=== PATIENT | male | born 1950 | race Caucasian/White ===

== ENCOUNTER → 2017-04-06 | Outpatient (CLI) | payer OTHER, MEDICARE ==
[~2017-04-06] VITALS: Ht 175.3 cm; Wt 89.2 kg
[~2017-04-06] MED LIST: ATACAND HCT 161 EACH PO; ATACAND HCT 321 EACH PO; AXERT12.5 MG PO; BACTRIM DS TAB1 EACH PO; BUTRANS1 EAC1 TD; CARDURA4 MG PO; CELEBREX 200 M200 MG PO; CELEXA20 MG PO; CIPROFLOXACIN500 M3 PO; DYAZIDE 37.5-21 EACH PO; FINASTERIDE5 MG PO; GABAPENTIN100 MG PO; HYDROCODON-ACE1 EAC4 PO; HYDROCODON-ACE1 EAC5 PO; HYOSCYAMINE0.375 M2 PO; LANSOPRAZOLE30 MG PO; LIDODERM 5%1 PATC1 TRANSDERM; LIDODERM 5%1 PATCH TD; LIDODERM 5%1 PATCH TOP; LIDODERM TP; NASONEX17 GM; NEURONTIN 300300 M1 PO; NEURONTIN 300M300 M2 PO; NEURONTIN300 MG PO; NEXIUM20 MG PO; NORCO 10-325 T1 EACH PO; SEROQUEL; SEROQUEL 12.512.5 MG PO; VALIUM5 MG PO; VOLTAREN GEL 1100 G1 TOP; VOLTAREN100 GM TP; XANAX 0.25 MG0.25 MG PO; prilosec PO
--- NOTE | ~2017-04-06 | HPC ---
[facility] [place] [address] PAIN MANAGEMENT CONSULTATION Name: MARIO GIBSON Room #: REG KRYSTAL Bowman.#: [id number] Admission: 04/06/17 Attend Phys: Franco Medina MD Discharge: Date of : 48 Report #: [id number] THIS REPORT FOR: //name// CC: Usman Medina DATE OF SERVICE: 04/06/2017 REASON FOR VISIT: Followup visit for chronic low back pain and cervicalgia. Management of high risk medication. The patient returns to pain clinic today in followup. He has been receiving medications at our clinic under terms of an opioid agreement which was established on 06/21/2008. His medication dose has been quite stable, hydrocodone 3 tablets per day. He uses the lowest effective dose. In addition, I provide him other medications, Celebrex for arthritis which works well, 200 mg daily, without substantial side effects. Axert 12.5 mg, 12 tablets is enough to usually get him to 3 months, Voltaren gel which has been helpful for his osteoarthritis and Neurontin 300 mg one tablet b.i.d. He denies side effects in this combination of medication. Plans to move to [place] to be closer to family in a few years. We talked about transition of his care there. His opioid prescribing has been very straightforward, and he should be able to establish with a physician there based upon our experience here. He continues to report substantial improvement day to day in his activities. 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 He is going to be retiring within a year and plans to write a book. Obviously, cognitively he is doing well. Denies significant issues such as constipation. PHYSICAL EXAMINATION: GENERAL: He is pleasant, alert, and oriented without side effects. We had a nice conversation today. No evidence of anxiety or depression. VITAL SIGNS: Blood pressure 123/78, heart rate 73, BMI is 29.0. Moves easily from the sitting to standing position and ambulates without much difficulty, and has some low back tenderness. Pain score today is 3/10 with medication. IMPRESSION: Chronic low back pain and neck pain, well managed with hydrocodone, in an opioid agreement since 2007. His morphine mg equivalents, he is at 30-40 [facility] [address] [place] [address] PAIN MANAGEMENT CONSULTATION Name: MARIO GIBSON Vernon Room #: REG [facility].#: [id number] Admission: 04/06/17 Attend Phys: Franco Medina MD Discharge: Date of : 48 Report #: [id number] mg per day. We reviewed CDC guidelines. Importance of safeguarding all medication was discussed. Followup will be scheduled in 3 months. By: [id number] Franco Medina MD /nt
[2017-04-06 09:40] VITALS: BP 123/78
== END ==
LOC: PAIN 06:50
DX: M54.2 Cervicalgia (principal); M54.5 Low back pain; I10 Essential (primary) hypertension; Z87.891 Personal history of nicotine dependence; F10.21 Alcohol dependence, in remission

== ENCOUNTER → 2017-07-13 | Outpatient (CLI) | payer OTHER, MEDICARE ==
[~2017-07-13] VITALS: Ht 175.3 cm; Wt 88.8 kg
--- NOTE | ~2017-07-13 | HPC ---
[facility] [address] [place] [address] PAIN MANAGEMENT CONSULTATION Name: MARIO GIBSON Room #: REG KRYSTAL Velez#: [id number] Admission: 07/13/17 Attend Phys: Franco Medina MD Discharge: Date of : 48 Report #: [id number] THIS REPORT FOR: //name// CC: Usman Medina DATE OF SERVICE: 07/13/2017 DATE OF SERVICE: 07/13/2017 Followup visit for management of intractable low back pain. HISTORY OF PRESENT ILLNESS: The patient returns to pain clinic today for a 15-minute consultation regarding is ongoing back pain. He reports today his pain score is an average 4/10 with medication. He has pain in his back, also in the thoracic spine and lumbar. He has some bilateral radiating leg pain. He is not interested in any sort of interventional treatments and he has been on medication through our clinic for nearly 10 years. He has been under an opioid agreement has been on time for all medications. He has shown no misuse or abuse. He has had appropriate screens which showed that his medication usage has been appropriate. This allowed him to remain very active through his usp, which occurred just within the last month or two. 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 He has family in [place] and he is thinking about moving. He has some concerns about his medication today as well as about the issues of treating intractable pain with opioids. We had about a 15-25 minute discussion today about that. He had read an article about wiring and where pain is perceived and why. We talked about nociception, transmission, transduction and perception. We talked about how pain might be modified along those pathways. We talked about how pain is ultimately a result of perception. As a pragmatist, we have tried to provide the best pain relief for patients with the fewest side effects using medications that seemed to be the safest. While we all understand the risks of opioids with all of the ____ that we have seen and the statistics of addiction, it has been our view and experience that patient's like this patient have benefited greatly from the use of opioids over long periods of time. He degrees and is grateful for the beneficial effects he has received from his low dose of hydrocodone. We have agreed that he will continue on his medication per terms of our agreement. He has some worries about whether or not anyone will provide the medication for him if he moves or if I retire. PHYSICAL EXAMINATION: He is pleasant, alert and oriented, shows no signs of overmedication. His blood pressure is 136/79, heart rate 73, BMI 28.9. He complains of some pain with standing, walking of a burning nature. His gait; however, is quite fluid without any evidence of antalgic gait features. [facility] [address] [place] [address] PAIN MANAGEMENT CONSULTATION Name: MARIO GIBSON Vernon Room #: REG CL Agustin#: [id number] Admission: 07/13/17 Attend Phys: Franco Medina MD Discharge: Date of : 48 Report #: [id number] IMPRESSION: 1. Chronic back pain and neck pain. 2. Management of high risk medication. PLAN: 1. I have renewed his medication under terms of our agreement. I provided him with hydrocodone 10/325 one tablet 4 times daily for a total of 40 mg or 40 morphine mg equivalents per day well under the CDC guideline recommendations for maximum dosing of opioid. 2. Axert 12.5. 3. Celebrex 200 mg once daily on a p.r.n. basis. 4. Voltaren gel for p.r.n. use. Precautions of all medications have been reviewed in detail and the importance of safeguarding medications has been reviewed as well. I plan to see him back in the pain clinic in 3 months. By: [id number] Franco Medina MD /nt
[2017-07-13 10:03] VITALS: BP 136/79
== END | disposition home or self-care (01) ==
LOC: PAIN 07:30
DX: Z76.0 Encounter for issue of repeat prescription (principal); G89.29 Other chronic pain; M54.5 Low back pain; M54.2 Cervicalgia; Z79.891 Long term (current) use of opiate analgesic; Z88.6 Allergy status to analgesic agent; Z88.8 Allergy status to other drugs, medicaments and biological substances

== ENCOUNTER → 2017-10-07 | Outpatient (CLI) | payer OTHER, MEDICARE ==
[~2017-10-07] VITALS: Ht 175.3 cm; Wt 90.2 kg
--- NOTE | ~2017-10-07 | HPC ---
[facility] [address] [address] PAIN MANAGEMENT CONSULTATION Name: MARIO GIBSON Room #: REG KRYSTAL Agustin#: [id number] Admission: 10/07/17 Attend Phys: Liang Marquis MD Discharge: Date of : 48 Report #: [id number] THIS REPORT FOR: //name// CC: Usman Marquis DATE OF SERVICE: 10/07/2017 FOLLOWUP COMPLAINT: Here for medication renewal. FOLLOWUP HISTORY: The patient is a 67-year-old gentleman who has been followed for a number of years with Dr. Medina. He returns to the pain clinic today for renewal of his medications. He feels that his medications continue to be helpful. He rates his pain as a 7/10 today. He has pain in the back and thoracic area as well as some in the lumbar area. He has been experiencing burning, cramping and shooting discomfort. Notes that the pain is worse with walking, standing and certain activities of daily living. He feels that overall things are going reasonably well with his medications. He is aware of the possible complications of opioid use, which could include tolerance as well as dependency. He does not feel that he is having any of these problems at this juncture. He finds that the Celebrex, Voltaren gel and hydrocodone are working reasonably well. He notes that the change in the weather has somewhat changed the amount of pain and discomfort he is experiencing at this juncture. ALLERGIES: PREDNISONE, CODEINE. MEDICATIONS: Hydrocodone 10/325 one p.o. q.i.d. as needed, Voltaren gel applied topically 4 times daily, Axert 12.5 mg q.12 hours headache, finasteride 5 mg, Celexa 20 mg daily, Cardura 4 mg, Nexium 20 mg, Atacand 16/12.5, Nasonex b.i.d., alprazolam 0.25 mg b.i.d. PHYSICAL EXAMINATION: Blood pressure 119/73, pulse 78, respiratory rate 16, room air saturation 98%. Height 5 feet 9 inches, weight 190 pounds, BMI is 29. The patient has not fallen since we saw him last. He is alert with no evidence of sedation. It appears to be taking his medication as prescribed. Has complained of pain, which he rates as a 7 involving his back and lumbar area with some bilateral pain and leg pain involvement. IMPRESSION: 1. Chronic back pain and neck pain. 2. Management of high risk medications. RECOMMENDATIONS: We discussed treatment options with the patient. He will continue to use his medication as prescribed. He will call us if he has any problems with his medications. A script for his medication has been written. [address] [address] PAIN MANAGEMENT CONSULTATION Name: MARIO GIBSON [facility] #: [facility] [id number] Admission: 10/07/17 Attend Phys: Liang Marquis MD Discharge: Date of : 48 Report #: [id number] We would like to thank you for letting us participate in his care. We hope he continues to improve. By: [id number] Liang Marquis MD /MIKE
[2017-10-07 11:03] VITALS: BP 119/73
== END ==
LOC: PAIN 06:58
DX: M54.6 Pain in thoracic spine (principal); M54.5 Low back pain; M54.2 Cervicalgia; Z79.899 Other long term (current) drug therapy

== ENCOUNTER → 2018-01-11 | Outpatient (CLI) | payer OTHER, MEDICARE ==
[~2018-01-11] VITALS: Ht 175.3 cm; Wt 90.7 kg
[~2018-01-11] MED LIST changes: +CRESTOR10 MG PO
--- NOTE | ~2018-01-11 | HPC ---
[facility] [address] [address] PAIN MANAGEMENT CONSULTATION Name: MARIO GIBSON Room #: REG [facility] Gracie.#: [id number] Admission: 01/11/18 Attend Phys: Franco Medina MD Discharge: Date of : 48 Report #: [id number] THIS REPORT FOR: //name// CC: ROX Medina DATE OF SERVICE: 01/11/2018 DATE OF REGISTRATION: 01/11/2018 Followup visit for chronic low back pain. The patient returns to pain clinic today for renewal of medication. Has been under an opioid agreement with our clinic now for over 9 years. This dose has been stable. He takes hydrocodone 10/325 four times daily for a morphine mg equivalent of 40. He has had no significant side effects, manages it well. Has had no red flag behaviors and is grateful for the pain relief that he gets. He also takes gabapentin 300 mg b.i.d. for neuropathy. Pain complaints center mostly in his low back, thoracic region as well. He describes an aching, burning, cramping sensation, 7/10, exacerbated by standing, walking and general activity. When the pain is severe, he goes to his recliner and uses heat. He is grateful for the relief that he gets from his medication, which is substantial. PQRS review demonstrates that he is very active. His BMI remains below 30 at 29.5. He complains of osteoarthritis involving his hands, back, shoulders and bilateral knees. These have been aided with the anti-inflammatories and opioids. He has a history of hypertension, under treatment, follows with his primary care physician. He is on opioid medication and has signed an opioid agreement first initiated in 2007. I have had him complete a functional assessment tool which shows his function high at 27/70 suggesting that he is managing his pain and is not interfering too much with his day-to-day activities. He has also completed a tool for opioid assessment and is at low risk for addiction. The patient does not smoke. Drinks alcohol, generally 1 ounce of whiskey daily, which he smiles and says that is medicinal for his sore throat. On physical exam today, he is pleasant, alert and oriented, without signs of anxiety, depression or overmedication. His blood pressure is 130/87, heart rate 76, respirations 16. BMI is 29.5. He has diffuse tenderness in his back, shoulders and low back. Complains of pain in his shoulders bilaterally. There is no obvious swelling. Localized tenderness is noted. [address] [address] PAIN MANAGEMENT CONSULTATION Name: MARIO GIBSON Room #: REG [facility].#: [id number] Admission: 01/11/18 Attend Phys: Franco Medina MD Discharge: Date of : 48 Report #: [id number] IMPRESSION: 1. Chronic intractable low back pain with radiculopathy and spondylosis. 2. Osteoarthritis involving additional joints with multiple pain generators. 3. Management of high risk medications under terms of written opioid agreement. I have renewed his medications for him today, which are hydrocodone 10/325 one tablet 4 times daily. He has Axert available for migraine headaches, which works effectively. No prescription provided today. PLAN: Follow up in 3 months. <ELECTRONICALLY SIGNED> By: Franco Medina MD 01/25/18 [id number] Franco Medina MD /nt
[2018-01-11 11:04] VITALS: BP 130/87
== END ==
LOC: PAIN 07:09
DX: G89.29 Other chronic pain (principal); M47.26 Other spondylosis with radiculopathy, lumbar region; M19.90 Unspecified osteoarthritis, unspecified site; F11.90 Opioid use, unspecified, uncomplicated

== ENCOUNTER → 2018-04-19 | Outpatient (CLI) | payer OTHER, MEDICARE ==
[~2018-04-19] VITALS: Ht 175.3 cm; Wt 90.2 kg
--- NOTE | ~2018-04-19 | HPC ---
[facility] [address] [address] PAIN MANAGEMENT CONSULTATION Name: MARIO GIBSON Room #: REG ADAKrystal Velez#: [id number] Admission: 04/19/18 Attend Phys: Franco Medina MD Discharge: Date of : 48 Report #: [id number] THIS REPORT FOR: //name// CC: Usman Medina DATE OF SERVICE: 04/19/2018 SUBJECTIVE: Followup visit for chronic low back pain with spondylosis. The patient returns to pain clinic for an outpatient followup visit. I see him at 3-month interval for management of medication under terms of a written opioid agreement following closely to the CDC guidelines. The patient has been a patient in my clinic since prior to 07/2008. I originally saw him after he had been evaluated by neurologist, Dr. Adam Huggins. He has post-laminectomy syndrome and has some persistent radicular pain, but also has a lot of pain just in the area of the lumbosacral segment. Over the years, he has managed very effectively with a consistent dose of hydrocodone. We now described this in terms of morphine milligram equivalents. He takes 4 hydrocodone 10/325 daily for an MME of 40 and has been also using diclofenac gel. He has found this quite effective. Today, he reports once again that with medication, he is able to control his pain down to a level of 4. It is an aching, burning, cramping sensation that begins in his low back and it radiates through the lumbar and thoracic spine. He has bilateral pain into the legs, although this is more tolerable. It has worsened with standing and activities. He is grateful for the medication, recliner and uses heat in addition to the oral opioid medication. He has always been on time in our clinic for his medications. He has shown no misuse or abuse to suggest an inappropriate use of medication for treatment of his intractable pain. Drug testing performed at my discretion has always yielded appropriate responses. PHYSICAL EXAMINATION: GENERAL: Today, he is pleasant, alert and oriented without any signs of overmedication. VITAL SIGNS: His blood pressure is 130/86, heart rate 65, respirations 14, BMI is 29.3. MUSCULOSKELETAL: He moves from a sitting to standing position, walks with only mild antalgic features. He is not a fall risk. He has been some pain with forward flexion and extension. There is tenderness across the scar. Straight leg raising is a little uncomfortable for him, but tolerable. Sensation and strength are normal in lower extremities. Deep tendon reflexes are diminished. [address] [address] PAIN MANAGEMENT CONSULTATION Name: MARIO GIBSON Room #: REG [facility]#: [id number] Admission: 04/19/18 Attend Phys: Franco Medina MD Discharge: Date of : 48 Report #: [id number] IMPRESSION: 1. Chronic intractable low back pain with radiculopathy and spondylosis, post-laminectomy syndrome. 2. Management of high risk medications under terms of written opioid agreement following closely to CDC guideline. 3. History of chronic intermittent migraine headaches. RECOMMENDATIONS: I renewed his medication for 3 months. He will be moving this month to [place] to be closer to family. I will be happy to discuss his case with any new prescribing physician either a pain clinic physician or primary care physician. His MME at 39 is in the lower category of the CDC guideline. I have found the patient to be straightforward and a reasonable candidate. Continue the use of medication for the treatment of his intractable pain. By: [id number] Franco Medina MD /nt
[2018-04-19 09:54] VITALS: BP 130/86
== END ==
LOC: PAIN 06:40
DX: M47.27 Other spondylosis with radiculopathy, lumbosacral region (principal); G89.4 Chronic pain syndrome; G43.909 Migraine, unspecified, not intractable, without status migrainosus; Z79.891 Long term (current) use of opiate analgesic